=== PATIENT | female | born 1965 | race American Indian/Alaskan Native ===

== ENCOUNTER 2017-04-09 11:39 | Outpatient (CLI) | payer OTHER ==
--- NOTE | 2017-04-09 12:10 | XRay Report ---
XRAY CHEST TWO VIEWS: 04/09/17 11:39:00 CLINICAL: Cough. COMPARISON: None FINDINGS: Normal heart and pulmonary vasculature. The lungs are normally expanded and clear.Degenerative changes in thoracic spine. IMPRESSION: No acute cardiopulmonary process.
== END 2017-04-09 11:40 | disposition home or self-care (01) ==
LOC: SPVIMAG 11:39
DX: R05 Cough (principal); M47.894 Other spondylosis, thoracic region
CPT/HCPCS: 71020

== ENCOUNTER 2017-06-08 10:18 | Inpatient (IN) | payer OTHER ==
[2017-06-08 10:35] LABS: Hematocrit 36.4 % (30.3-42.9); Hemoglobin 12.3 gm/dl (10.1-14.3); Mean Corpuscular HGB Conc 34 % (30-34); Mean Corpuscular Hemoglobin 30 pg (28-32); Mean Corpuscular Volume 90 fl (79-97); Platelet Count 289 K/mm3 (140-440); Red Blood Count 4.07 M/mm3 (3.65-5.03); Red Cell Distribution Width 12.5 % (13.2-15.2); White Blood Count 6.4 K/mm3 (4.5-11.0)
--- NOTE | 2017-06-08 10:35 | Emergency Department Report ---
ED Neuro Deficit HPI - General Stated Complaint: CHEST PAIN, RT SIDE WEAKNESS Time Seen by Provider: 06/08/17 10:34 Source: patient, EMS, old records reviewed Mode of arrival: Stretcher Limitations: No Limitations - History of Present Illness Initial Comments: 52-year-old female the past medical history hypertension, asthma, diabetes presents to the hospital complaining of chest pain and right-sided weakness. Chest pain developed at 8 AM. Pain is right sided, constant, worse with palpation and movement and extends to her right trapezius muscle extending to the neck. At 9 AM patient notices right-sided arm and leg weakness and numbness with associated pain to right shoulder and arm with movement. Patient received aspirin and nitroglycerin prior to arrival with some reduction in pain. Woke up with pain and numbness in the the extremity then spread down to the chest and leg. PMD: Dr. Jones - Related Data Allergies/Adverse Reactions: Allergies Allergy/AdvReac Type Severity Reaction Status Date / Time Penicillins Allergy Rash Verified 06/08/17 10:25 ED Review of Systems ROS: Stated complaint: CHEST PAIN, RT SIDE WEAKNESS Other details as noted in HPI Comment: All other systems reviewed and negative ED Neuro Physical Exam - General Suspected Stroke: Yes - NIHSS Assessment Interval: Baseline 1a. Level of Consciousness: alert 1b. LOC Questions: answers correctly 1c. LOC Commands: performs tasks correctly 2. Best Gaze: normal 3. Visual: no visual loss 4. Facial Palsy: normal symmetrical movement 5b. Motor Arm Right: drift 5a. Motor Arm Left: no drift 6a. Motor Leg Left: no drift 6b. Motor Leg Right: no gravity effort 7. Limb Ataxia: absent 8. Sensory: mild/moderate sensory loss 9. Best Language: no aphasia 10. Dysarthria: normal 11. Extinction/Inattention: no abnormality Total Score: 5 Stroke Severity: Moderate Stroke - Other Other exam information: General: No limitations, patient is alert in no acute distress Head exam: Atraumatic, normocephalic Eyes exam: Normal appearance, pupils equal reactive to light, extraocular movements intact ENT: Moist mucous membrane, normal oropharynx Neck exam: Normal inspection, full range of motion, no meningismus, tenderness to right serious extending to right lateral Respiratory exam: Clear to auscultation bilateral, no wheezes, rales, crackles Cardiovascular: Normal rate and rhythm, reproducible right chest wall Abdomen: Soft, nondistended, and nontender, with normal bowel sounds, no rebound, or guarding Extremity: Full range of motion normal inspection no deformity Back: Normal Inspection, full range of motion, no tenderness Neurologic: Alert, oriented x3, cranial nerves intact, see NIH stroke scale Psychiatric: normal affect, normal mood Skin: Warm, dry, intact ED Course Vital Signs 06/08/17 10:53 Pulse Rate 74 Respiratory 18 Rate Blood Pressure 131/87 O2 Sat by Pulse 100 Oximetry - Consultations Consultation #1: 06/08/17 10:40 case d/w Dr Nichols neurologist. Will call back, pt in ct now 06/08/17 11:03 Upon neurologist evaluation patient no longer has weakness but does have some mild numbness to the right side. TPA not recommended at this time. Recommend admission for MRI head and C-spine and cervical radiculopathy is also in the differential - Lab Data Result diagrams: 06/08/17 10:26 06/08/17 10:26 Lab Results 06/08/17 06/08/17 06/08/17 Range/Units 10:26 10:26 10:26 WBC 6.4 (4.5-11.0) K/mm3 RBC 4.07 (3.65-5.03) M/mm3 Hgb 12.3 (10.1-14.3) gm/dl Hct 36.4 (30.3-42.9) % MCV 90 (79-97) fl MCH 30 (28-32) pg MCHC 34 (30-34) % RDW 12.5 L (13.2-15.2) % Plt Count 289 (140-440) K/mm3 PT 13.2 (12.2-14.9) Sec. INR 0.95 (0.87-1.13) APTT 29.1 (24.2-36.6) Sec. Thrombin Time (15.1-19.6) Sec. Sodium 136 L (137-145) mmol/L Potassium 4.1 (3.6-5.0) mmol/L Chloride 98.7 (98-107) mmol/L Carbon Dioxide 23 (22-30) mmol/L Anion Gap 18 mmol/L BUN 11 (7-17) mg/dL Creatinine 0.6 L (0.7-1.2) mg/dL Estimated GFR > 60 ml/min BUN/Creatinine Ratio 18 % Glucose 187 H (65-100) mg/dL Calcium 9.0 (8.4-10.2) mg/dL Troponin T < 0.010 (0.00-0.029) ng/mL 12/16/17 Range/Units 10:26 WBC (4.5-11.0) K/mm3 RBC (3.65-5.03) M/mm3 Hgb (10.1-14.3) gm/dl Hct (30.3-42.9) % MCV (79-97) fl MCH (28-32) pg MCHC (30-34) % RDW (13.2-15.2) % Plt Count (140-440) K/mm3 PT (12.2-14.9) Sec. INR (0.87-1.13) APTT (24.2-36.6) Sec. Thrombin Time 17.9 (15.1-19.6) Sec. Sodium (137-145) mmol/L Potassium (3.6-5.0) mmol/L Chloride (98-107) mmol/L Carbon Dioxide (22-30) mmol/L Anion Gap mmol/L BUN (7-17) mg/dL Creatinine (0.7-1.2) mg/dL Estimated GFR ml/min BUN/Creatinine Ratio % Glucose (65-100) mg/dL Calcium (8.4-10.2) mg/dL Troponin T (0.00-0.029) ng/mL - EKG Data -: EKG Interpreted by Ar EKG shows normal: sinus rhythm, axis (26), QRS complexes (73), ST-T waves (no stemi/t inv) Rate: normal (67) When compared to previous EKG there are: previous EKG unavailable - Radiology Data Radiology results: report reviewed ct head: naf read by radiologist - Medical Decision Making Patient's symptoms have improved after CT scan. Upon return from ct persistent numbness but no further weakness. Also symptoms associated with pain and stress. TPA is not recommended by Dr. Nichols neurologist. Patient be admitted and MRI head and C-spine - Differential Diagnosis radiculopathy, stress reaction, ischemic CVA, hemorrhagic CVA, MSK pain - Thrombolytic Inclusion/Exclusion Thrombolytic Inclusion Criteria: Negative CT Scan for ICH Thrombolytic Contraindications: Rapidily Improving s/s Critical Care Time: No Critical care attestation.: If time is entered above; I have spent that time in minutes in the direct care of this critically ill patient, excluding procedure time. ED Disposition Clinical Impression: Numbness on right side, Transient right leg weakness, Right arm weakness, HTN ( hypertension), Diabetes, Right-sided chest wall pain Disposition: OP ADMIT IP TO THIS HOSP Is pt being admited?: Yes Condition: Stable Instructions: Chest Pain (ED) Time of Disposition: 11:05 (Dr Eastman/hosp)
[2017-06-08 10:44] LABS: INR 0.95 (0.87-1.13); Partial Thromboplastin Time 29.1 Sec. (24.2-36.6)
[2017-06-08 10:47] LABS: BUN/Creatinine Ratio 18; Blood Urea Nitrogen 11 mg/dL (7-17); Carbon Dioxide 23 mmol/L (22-30); Glucose 187 mg/dL (65-100)
[2017-06-08 10:48] LABS: Anion Gap 18 mmol/L; Chloride 98.7 mmol/L (98-107); Potassium 4.1 mmol/L (3.6-5.0); Sodium 136 mmol/L (137-145)
--- NOTE | 2017-06-08 10:49 | Cat Scan Report ---
CT HEAD WITHOUT CONTRAST: 06/08/17 10:18:00 CLINICAL: 98N-STROKE ALERT. TECHNIQUE: 2.5-mm noncontrast scans. COMPARISON:None. FINDINGS: The ventricles and sulci are normal for age.No abnormal density. No mass or mass effect. No hemorrhage, edema or extra-axial collection. The sinuses are clear. Normal orbits and soft tissues. The calvarium and skull base are intact. IMPRESSION: Normal head CT. No evidence of acute infarct or hemorrhage. Verbal report was given to Dr. Jurado in the emergency department on 06/08/17 at 10:38. 98N-STROKE ALERT
[2017-06-08] MEDS ORDERED: ZOFRAN IV ONE (11:03)
[2017-06-08] MEDS ORDERED: MORPHINE IV ONE (11:04)
[2017-06-08] MEDS ORDERED: TORADOL IV ONE (11:06)
[2017-06-08 11:29] LABS: Anisocytosis 1+; Basophils % (Manual) 0 % (0.0-1.8); Blastocytes % (Manual) 0 %; Diff Status Complete; Platelet Estimate Consistent w Auto
[2017-06-08] MEDS ORDERED: BENADRYL IV ONE (12:25)
[2017-06-08] MEDS ORDERED: BENADRYL ONE (12:28)
--- NOTE | 2017-06-08 15:11 | History and Physical Report ---
History of Present Illness Date of examination: 06/08/17 Date of admission: 06/08/17 12:43 Chief complaint: CC L chest pain and Rt weakness 1 day History of present illness: History of Present Illness 52-year-old female the past medical history of hypertension, asthma and diabetes presents to the hospital complaining of chest pain and right-sided weakness. Chest pain developed at 8 AM. Pain is right sided, constant, worse with palpation and movement and extends to her right trapezius muscle extending to the neck. At 9 AM patient notices right-sided arm and leg weakness and numbness with associated pain to right shoulder and arm with movement. Patient received aspirin and nitroglycerin prior to arrival with some reduction in pain. Woke up with pain and numbness in the the extremity then spread down to the chest and leg. Past History Past Medical History: diabetes, hypertension Past Surgical History: No surgical history Social history: lives with family, full code Family history: hypertension Medications and Allergies Allergies Allergy/AdvReac Type Severity Reaction Status Date / Time Penicillins Allergy Rash Verified 06/08/17 10:25 Home Medications Medication Instructions Recorded Confirmed Last Taken Type Fluticasone [Flonase] 1 spray NS QDAY 06/08/17 06/08/17 06/07/17 06:30 History Glimepiride [Amaryl] 4 mg PO QAM 06/08/17 06/08/17 06/07/17 06:30 History Loratadine 10 mg PO Q2D 06/08/17 06/08/17 06/07/17 06:30 History Losartan/Hydrochlorothiazide 1 each PO DAILY 06/08/17 06/08/17 06/07/17 06:30 History [Losartan-Hctz 50-12.5 mg Tab] Pioglitazone HCl/Metformin HCl 1 each PO QDAY 06/08/17 06/08/17 06/07/17 06:30 History [Pioglitazone-Metformin 15-850] Review of Systems All systems: negative Cardiovascular: chest pain Neurological: transient paralysis (Rt side) Exam - Constitutional Vitals: Temp Pulse Resp BP Pulse Ox 98.0 F 65 13 127/71 96 06/08/17 12:05 06/08/17 12:00 06/08/17 12:00 06/08/17 12:00 06/08/17 12:00 General appearance: Present: no acute distress, well-nourished - EENT Eyes: Present: PERRL ENT: hearing intact, clear oral mucosa - Neck Neck: Present: supple, normal ROM - Respiratory Respiratory effort: normal Respiratory: bilateral: CTA - Cardiovascular Heart rate: 70 Rhythm: regular Heart Sounds: Present: S1 & S2. Absent: rub, click - Extremities Extremities: no ischemia, pulses intact, pulses symmetrical, No edema Peripheral Pulses: within normal limits - Abdominal General gastrointestinal: Present: soft, non-tender, non-distended, normal bowel sounds Female genitourinary: Present: normal - Integumentary Integumentary: Present: clear, warm, dry - Musculoskeletal Musculoskeletal: gait normal, strength equal bilaterally - Psychiatric Psychiatric: appropriate mood/affect, intact judgment & insight - Neurologic Neurologic: CNII-XII intact, focal deficits (Slight weakness Rt side), moves all extremities Results - Labs CBC & Chem 7: 06/08/17 10:26 06/08/17 10:26 Labs: Laboratory Last Values WBC 6.4 K/mm3 (4.5-11.0) 06/08/17 10:26 RBC 4.07 M/mm3 (3.65-5.03) 06/08/17 10:26 Hgb 12.3 gm/dl (10.1-14.3) 06/08/17 10:26 Hct 36.4 % (30.3-42.9) 06/08/17 10:26 MCV 90 fl (79-97) 06/08/17 10:26 MCH 30 pg (28-32) 06/08/17 10:26 MCHC 34 % (30-34) 06/08/17 10:26 RDW 12.5 % (13.2-15.2) L 06/08/17 10:26 Plt Count 289 K/mm3 (140-440) 06/08/17 10:26 Add Manual Diff Complete 06/08/17 10:26 Total Counted 100 06/08/17 10:26 Seg Neuts % (Manual) 46.0 % (40.0-70.0) 06/08/17 10:26 Band Neutrophils % 0 % 06/08/17 10:26 Lymphocytes % (Manual) 45.0 % (13.4-35.0) H 06/08/17 10:26 Reactive Lymphs % (Man) 0 % 06/08/17 10:26 Monocytes % (Manual) 4.0 % (0.0-7.3) 06/08/17 10:26 Eosinophils % (Manual) 4.0 % (0.0-4.3) 06/08/17 10:26 Basophils % (Manual) 0 % (0.0-1.8) 06/08/17 10:26 Metamyelocytes % 1.0 % 06/08/17 10:26 Myelocytes % 0 % 06/08/17 10:26 Promyelocytes % 0 % 06/08/17 10:26 Blast Cells % 0 % 06/08/17 10:26 Nucleated RBC % Not Reportable 06/08/17 10:26 Seg Neutrophils # Man 2.9 K/mm3 (1.8-7.7) 06/08/17 10:26 Band Neutrophils # 0.0 K/mm3 06/08/17 10:26 Lymphocytes # (Manual) 2.9 K/mm3 (1.2-5.4) 06/08/17 10:26 Abs React Lymphs (Man) 0.0 K/mm3 06/08/17 10:26 Monocytes # (Manual) 0.3 K/mm3 (0.0-0.8) 06/08/17 10:26 Eosinophils # (Manual) 0.3 K/mm3 (0.0-0.4) 06/08/17 10:26 Basophils # (Manual) 0.0 K/mm3 (0.0-0.1) 06/08/17 10:26 Metamyelocytes # 0.1 K/mm3 06/08/17 10:26 Myelocytes # 0.0 K/mm3 06/08/17 10:26 Promyelocytes # 0.0 K/mm3 06/08/17 10:26 Blast Cells # 0.0 K/mm3 06/08/17 10:26 WBC Morphology Not Reportable 06/08/17 10:26 Hypersegmented Neuts Not Reportable 06/08/17 10:26 Hyposegmented Neuts Not Reportable 06/08/17 10:26 Hypogranular Neuts Not Reportable 06/08/17 10:26 Smudge Cells Not Reportable 06/08/17 10:26 Toxic Granulation Not Reportable 06/08/17 10:26 Toxic Vacuolation Not Reportable 06/08/17 10:26 Dohle Bodies Not Reportable 06/08/17 10:26 Pelger-Huet Anomaly Not Reportable 06/08/17 10:26 [place] Rods Not Reportable 06/08/17 10:26 Platelet Estimate Consistent w auto 06/08/17 10:26 Clumped Platelets Not Reportable 06/08/17 10:26 Plt Clumps, EDTA Not Reportable 06/08/17 10:26 Large Platelets Not Reportable 06/08/17 10:26 Giant Platelets Not Reportable 06/08/17 10:26 Platelet Satelliting Not Reportable 06/08/17 10:26 Plt Morphology Comment Not Reportable 06/08/17 10:26 RBC Morphology Not Reportable 06/08/17 10:26 Dimorphic RBCs Not Reportable 06/08/17 10:26 Polychromasia Not Reportable 06/08/17 10:26 Hypochromasia Not Reportable 06/08/17 10:26 Poikilocytosis Not Reportable 06/08/17 10:26 Anisocytosis 1+ 06/08/17 10:26 Microcytosis Not Reportable 06/08/17 10:26 Macrocytosis Not Reportable 06/08/17 10:26 Spherocytes Not Reportable 06/08/17 10:26 Pappenheimer Bodies Not Reportable 06/08/17 10:26 Sickle Cells Not Reportable 06/08/17 10:26 Target Cells Not Reportable 06/08/17 10:26 Tear Drop Cells Not Reportable 06/08/17 10:26 Ovalocytes Not Reportable 06/08/17 10:26 Helmet Cells Not Reportable 06/08/17 10:26 Vance-Ronda Bodies Not Reportable 06/08/17 10:26 [place] Rings Not Reportable 06/08/17 10:26 Joseph Cells Not Reportable 06/08/17 10:26 Bite Cells Not Reportable 06/08/17 10:26 Crenated Cell Not Reportable 06/08/17 10:26 Elliptocytes Not Reportable 06/08/17 10:26 Acanthocytes (Spur) Not Reportable 06/08/17 10:26 Rouleaux Not Reportable 06/08/17 10:26 Hemoglobin C Crystals Not Reportable 06/08/17 10:26 Schistocytes Not Reportable 06/08/17 10:26 Malaria parasites Not Reportable 06/08/17 10:26 Jatin Bodies Not Reportable 06/08/17 10:26 Hem Pathologist Commnt No 06/08/17 10:26 PT 13.2 Sec. (12.2-14.9) 06/08/17 10:26 INR 0.95 (0.87-1.13) 06/08/17 10:26 APTT 29.1 Sec. (24.2-36.6) 06/08/17 10:26 Thrombin Time 17.9 Sec. (15.1-19.6) 06/08/17 10:26 Sodium 136 mmol/L (137-145) L 06/08/17 10:26 Potassium 4.1 mmol/L (3.6-5.0) 06/08/17 10:26 Chloride 98.7 mmol/L (98-107) 06/08/17 10:26 Carbon Dioxide 23 mmol/L (22-30) 06/08/17 10:26 Anion Gap 18 mmol/L 06/08/17 10:26 BUN 11 mg/dL (7-17) 06/08/17 10:26 Creatinine 0.6 mg/dL (0.7-1.2) L 06/08/17 10:26 Estimated GFR > 60 ml/min 06/08/17 10:26 BUN/Creatinine Ratio 18 % 06/08/17 10:26 Glucose 187 mg/dL (65-100) H 06/08/17 10:26 POC Glucose 179 (70-105) H 06/08/17 10:52 Calcium 9.0 mg/dL (8.4-10.2) 06/08/17 10:26 Troponin T < 0.010 ng/mL (0.00-0.029) 06/08/17 10:26 Short CBC 06/08/17 Range/Units 10:26 WBC 6.4 (4.5-11.0) K/mm3 Hgb 12.3 (10.1-14.3) gm/dl Hct 36.4 (30.3-42.9) % Plt Count 289 (140-440) K/mm3 BMP 06/08/17 10:26 Sodium 136 L Potassium 4.1 Chloride 98.7 Carbon Dioxide 23 BUN 11 Creatinine 0.6 L Glucose 187 H Calcium 9.0 Cardiac Enzymes 06/08/17 Range/Units 10:26 Troponin T < 0.010 (0.00-0.029) ng/mL Assessment and Plan Advance Directives: Yes (Full code) VTE prophylaxis?: Chemical Plan of care discussed with patient/family: Yes - Patient Problems (1) Chest pain Current Visit: Yes Status: Acute Qualifiers: Chest pain type: unspecified Qualified Code(s): R07.9 - Chest pain, unspecified Plan to address problem: Chest pain w/u (2) TIA (transient ischemic attack) Current Visit: Yes Status: Acute Qualifiers: Transient cerebral ischemia type: unspecified Qualified Code(s): G45.9 - Transient cerebral ischemic attack, unspecified Plan to address problem: W/u initiated (3) HTN (hypertension) Current Visit: Yes Status: Chronic Qualifiers: Hypertension type: essential hypertension Qualified Code(s): I10 - Essential (primary) hypertension Plan to address problem: Cont antihypertensives (4) T2DM (type 2 diabetes mellitus) Current Visit: Yes Status: Chronic Qualifiers: Diabetes mellitus complication status: without complication Diabetes mellitus care home insulin use: without spring fitter use Qualified Code(s): E11.9 - Type 2 diabetes mellitus without complications Plan to address problem: Check a1c cont oral hypoglycemics Cont coverge (5) DVT prophylaxis Current Visit: Yes Status: Acute Plan to address problem: On Lovenox
[2017-06-08] MEDS ORDERED: NACL 0.9% 500 ML 500 ML IV ONE (17:00)
[2017-06-08] MEDS: FIORICET PO PRN (20:58)
[2017-06-09] MEDS ORDERED: NON-FORMULARY (Loratadine [Loratadine] 10 MG) PO SCH (09:15)
[2017-06-09] MEDS: FIORICET PO PRN (09:21)
[2017-06-09] MEDS ORDERED: SODIUM CHLORIDE FLUSH SYRINGE 10 ML IV PRN (09:30)
[2017-06-09] MEDS ORDERED: METFORMIN HCL PO SCH (10:00)
[2017-06-09] MEDS ORDERED: NON-FORMULARY (Losartan/Hydrochlorothiazide [Losartan-Hctz 50-12.5 Mg Tab] 1 EACH) PO SCH (10:00)
[2017-06-09] MEDS ORDERED: PIOGLITAZONE HCL PO SCH (10:00)
[2017-06-09 10:22] LABS: Creatine Kinase 75 units/L (30-135); Creatine Kinase MB 1.2 ng/mL (0.0-4.0)
[2017-06-09] MEDS: FLONASE NS SCH (11:19)
[2017-06-09] MEDS: ACTOS PO SCH (11:21)
[2017-06-09] MEDS: COZAAR PO SCH (11:23)
[2017-06-09] MEDS: CLARITIN PO SCH (11:23)
[2017-06-09] MEDS: HCTZ PO SCH (11:23)
[2017-06-09] MEDS: AMARYL PO SCH (11:36)
[2017-06-09] MEDS: GLUCOPHAGE PO SCH (11:37)
[2017-06-09] MEDS: NOVOLOG SUB-Q SCH ×3 (12:00→22:36)
--- NOTE | 2017-06-09 12:08 | Consultation ---
History of Present Illness Consult date: 06/09/17 History of present illness: plan MRI and work up new onset of stroke a/w right sided numbness and pain diabetic poor cotntrol see CT report Past History Past Medical History: diabetes, hypertension Past Surgical History: No surgical history Social history: lives with family, full code Family history: hypertension Medications and Allergies Allergies Allergy/AdvReac Type Severity Reaction Status Date / Time Penicillins Allergy Rash Verified 06/08/17 10:25 Home Medications Medication Instructions Recorded Confirmed Last Taken Type Fluticasone [Flonase] 1 spray NS QDAY 06/08/17 06/08/17 06/07/17 06:30 History Glimepiride [Amaryl] 4 mg PO QAM 06/08/17 06/08/17 06/07/17 06:30 History Loratadine 10 mg PO Q2D 06/08/17 06/08/17 06/07/17 06:30 History Losartan/Hydrochlorothiazide 1 each PO DAILY 06/08/17 06/08/17 06/07/17 06:30 History [Losartan-Hctz 50-12.5 mg Tab] Pioglitazone HCl/Metformin HCl 1 each PO QDAY 06/08/17 06/08/17 06/07/17 06:30 History [Pioglitazone-Metformin 15-850] Active Meds: Active Medications Acetaminophen/Butalbital/Caffeine (Fioricet) 1 tab PO Q4H PRN PRN Reason: Headache Last Admin: 06/09/17 09:21 Dose: 1 tab Fluticasone Propionate (Flonase) 50 mcg NS QDAY PENDING SALE TO [facility] Last Admin: 06/09/17 11:19 Dose: 50 mcg Glimepiride (Amaryl) 4 mg PO QAMDIAB PENDING SALE TO [facility] Last Admin: 06/09/17 11:36 Dose: 4 mg Hydrochlorothiazide (Hctz) 12.5 mg PO QDAY PENDING SALE TO [facility] Last Admin: 06/09/17 11:23 Dose: 12.5 mg Insulin Aspart (Novolog) 0 units SUB-Q ACHS PENDING SALE TO [facility] PRN Reason: Protocol Loratadine (Claritin) 10 mg PO Q2D PENDING SALE TO [facility] Last Admin: 06/09/17 11:23 Dose: 10 mg Losartan Potassium (Cozaar) 50 mg PO QDAY PENDING SALE TO [facility] Last Admin: 06/09/17 11:23 Dose: 50 mg Metformin HCl (Glucophage) 850 mg PO QDDIAB PENDING SALE TO [facility] Last Admin: 06/09/17 11:37 Dose: Not Given Pioglitazone HCl (Actos) 15 mg PO QDDIAB PENDING SALE TO [facility] Last Admin: 06/09/17 11:21 Dose: 15 mg Sodium Chloride (Sodium Chloride Flush Syringe 10 Ml) 10 ml IV PRN PRN PRN Reason: LINE FLUSH Physical Examination - Vital Signs Vital Signs: Vital Signs BP 131/87 06/08/17 10:44 Results - Laboratory Findings CBC and BMP: 06/08/17 10:26 06/08/17 10:26 Abnormal Lab Findings: Abnormal Labs 06/08/17 06/08/17 06/08/17 10:26 10:26 10:52 RDW 12.5 L Lymphocytes % (Manual) 45.0 H Sodium 136 L Creatinine 0.6 L Glucose 187 H POC Glucose 179 H
--- NOTE | 2017-06-09 15:44 | Progress Note ---
Assessment and Plan /Chest pain Chest pain w/u ordered stress test cont aspirin, statin /TIA (transient ischemic attack) CT head unremarkable MRI/MRA/Carotid doppler ordered cont stroke protocol neurology consulted cont aspirin/statin /HTN (hypertension) Cont antihypertensives /T2DM (type 2 diabetes mellitus) Check a1c cont oral hypoglycemics Cont coverge /DVT prophylaxis On Lovenox Brief history: 52-year-old female the past medical history of hypertension, asthma and diabetes presents to the hospital complaining of chest pain and right-sided weakness. Physical exam: General appearance: Present: no acute distress, well-nourished - EENT Eyes: Present: PERRL ENT: hearing intact, clear oral mucosa - Neck Neck: Present: supple, normal ROM - Respiratory Respiratory effort: normal Respiratory: bilateral: CTA - Cardiovascular Heart rate: 70 Rhythm: regular Heart Sounds: Present: S1 & S2. Absent: rub, click - Extremities Extremities: no ischemia, pulses intact, pulses symmetrical, No edema Peripheral Pulses: within normal limits - Abdominal General gastrointestinal: Present: soft, non-tender, non-distended, normal bowel sounds Female genitourinary: Present: normal - Integumentary Integumentary: Present: clear, warm, dry - Musculoskeletal Musculoskeletal: gait normal, strength equal bilaterally - Psychiatric Psychiatric: appropriate mood/affect, intact judgment & insight - Neurologic Neurologic: CNII-XII intact, focal deficits (Slight weakness Rt side), moves all extremities Subjective Date of service: 06/09/17 Interval history: Pt seen and examined continue to c/o right hand numbness and tingling no headache did not MRI as she was claustrophobic Objective - Constitutional Vitals: Vital Signs - 12hr 06/09/17 06/09/17 06/09/17 04:00 04:15 10:00 Temperature 98.1 F Pulse Rate 62 67 Respiratory 18 Rate Blood Pressure 102/51 O2 Sat by Pulse 100 99 Oximetry 06/09/17 11:23 Temperature Pulse Rate Respiratory Rate Blood Pressure 133/62 O2 Sat by Pulse Oximetry - Labs CBC & Chem 7: 06/08/17 10:26 06/08/17 10:26
[2017-06-09 16:07] LABS: Creatine Kinase MB 1.2 ng/mL (0.0-4.0)
[2017-06-09 16:08] LABS: Creatine Kinase 80 units/L (30-135)
[2017-06-10] MEDS: NOVOLOG SUB-Q SCH ×4 (08:49→22:37)
[2017-06-10] MEDS ORDERED: PROVENTIL IH PRN (10:03)
[2017-06-10] MEDS: ACTOS PO SCH (13:59)
[2017-06-10] MEDS: HALFPRIN EC PO SCH (14:00)
[2017-06-10] MEDS: HCTZ PO SCH (14:00)
[2017-06-10] MEDS: COZAAR PO SCH (14:00)
[2017-06-10] MEDS: AMARYL PO SCH (14:02)
--- NOTE | 2017-06-10 15:25 | Vascular Lab Report ---
CAROTID DUPLEX STUDY: RIGHT PSVEDV CCA PROX:[id number] CCA DIST:[id number] ICA PROX:7624 ICA MID:7928 ICA DIST:[id number] ECA: [id number] VERT: 51 23 LEFT PSVEDV CCA PROX:8827 CCA DIST:7924 ICA PROX:3512 ICA MID:7232 ICA DIST:7536 ECA: 5913 VERT: 56 24 REASON FOR EXAM: Carotid artery stenosis and stroke. COMMENTS ON THE RIGHT: Doppler frequency analysis is consistent with 16 to 49 percent diameter reduction of the internal carotid artery. Minimal amount of plaque is seen. The common carotid artery is patent. The external carotid artery is patent. The vertebral artery has antegrade flow. COMMENTS ON THE LEFT: Doppler frequency analysis is consistent with 16 to 49 percent diameter reduction of the internal carotid artery. Minimal amount of plaque is seen. The common carotid artery is patent. The external carotid artery is patent. The vertebral artery has antegrade flow. IMPRESSION: Less than 50% diameter reduction in the internal carotid arteries bilaterally. Consider repeat carotid artery duplex in 12 months.
[2017-06-10] MEDS ORDERED: ATIVAN IV ONE (15:27)
[2017-06-10] MEDS: GLUCOPHAGE PO SCH (16:02)
[2017-06-10] MEDS: FLONASE NS SCH (16:07)
--- NOTE | 2017-06-10 19:14 | Magnetic Resonance Report ---
FINAL REPORT EXAM: MR BRAIN WO CON HISTORY: stroke TECHNIQUE: Multiplanar, multisequence MRI of the brain was performed without intravenous contrast. PRIORS: CT of the head 06/08/2017. FINDINGS: No intracranial hemorrhage, mass, mass effect, midline shift or evidence of ischemic infarct. No restricted diffusion. The intracranial flow voids are patent. The ventricles are normal in size, shape and position. The basilar cisterns are patent. The small right mastoid effusion is seen. The orbits are intact. The extracranial soft tissues are normal. IMPRESSION: 1. No intracranial abnormality. 2. Small right mastoid effusion.
--- NOTE | 2017-06-10 19:14 | Progress Note ---
Assessment and Plan - Chest pain Chest pain w/u Awaiting Lexiscan cont Oxygen,aspirin,NTG, statin - TIA (transient ischemic attack) CT head unremarkable. Carotid doppler unremarkable MRI/MRA/Carotid doppler ordered cont stroke protocol neurology input appreciated consulted cont aspirin/statin - HTN (hypertension) Cont antihypertensives - T2DM (type 2 diabetes mellitus) A1c 9.5%.m Consistent carbohydrate diet. Continue with SSI. Pt refusing insulin coverage despite high blood sugar. Pt advised to the contrary cont oral hypoglycemics - DVT prophylaxis On Lovenox Subjective Date of service: 06/10/17 Interval history: Still having chest pain and sight shortness of breath. Pt refusing her insulin injection for blood sugar control Objective - Constitutional Vitals: Vital Signs - 12hr 06/10/17 06/10/17 06/10/17 08:28 10:44 10:53 Temperature 98.5 F Pulse Rate 92 H Pulse Rate [ 80 79 Anterior Bilateral Throughout] Respiratory 18 Rate Respiratory 20 20 Rate [Anterior Bilateral Throughout] Blood Pressure 140/71 [Left] O2 Sat by Pulse 99 Oximetry 06/10/17 06/10/17 06/10/17 11:11 12:27 16:43 Temperature 97.6 F 97.9 F 97.9 F Pulse Rate 82 93 H 96 H Pulse Rate [ Anterior Bilateral Throughout] Respiratory 20 18 18 Rate Respiratory Rate [Anterior Bilateral Throughout] Blood Pressure 140/76 138/86 149/87 [Left] O2 Sat by Pulse 100 98 98 Oximetry General appearance: Present: no acute distress, well-nourished - EENT Eyes: PERRL, EOM intact - Neck Neck: supple, normal ROM - Respiratory Respiratory effort: normal Respiratory: bilateral: CTA - Cardiovascular Rhythm: regular Heart Sounds: Present: S1 & S2. Absent: gallop, rub Extremities: pulses intact, No edema, normal color, Full ROM - Gastrointestinal General gastrointestinal: Present: soft, non-tender, non-distended, normal bowel sounds - Integumentary Integumentary: clear, warm, dry - Musculoskeletal Musculoskeletal: 1, strength equal bilaterally - Neurologic Neurologic: moves all extremities - Psychiatric Psychiatric: appropriate mood/affect - Labs CBC & Chem 7: 06/08/17 10:26 06/08/17 10:26 Labs: Abnormal lab results 06/09/17 06/10/17 06/10/17 Range/Units 21:43 06:18 07:53 POC Glucose 221 H 165 H (70-105) Hemoglobin A1c 9.5 H (4-6) % 06/10/17 Range/Units 16:08 POC Glucose 210 H (70-105) Hemoglobin A1c (4-6) %
--- NOTE | 2017-06-10 19:21 | Magnetic Resonance Report ---
FINAL REPORT EXAM: MR MRA/MRV HEAD WO CON HISTORY: stroke TECHNIQUE: MRA of the brain was performed without intravenous contrast. MIPS were included. PRIORS: None. FINDINGS: Normal anatomy of the jena of [place] is noted. No intracranial aneurysm, vessel occlusion or stenosis. The vertebral, basilar and posterior cerebral arteries are patent. The posterior communicating arteries are patent. The internal carotid, middle cerebral and anterior cerebral arteries are patent. Anterior communicating artery is patent. IMPRESSION: Normal MRA of the brain.
[2017-06-10] MEDS ORDERED: LOVENOX SUB-Q SCH (22:00)
--- NOTE | 2017-06-11 00:24 | Treadmill Report ---
ORDERING PHYSICIAN: Cheryl Eastman MD INDICATION: Chest pain. FINDINGS: There is no scintigraphic evidence of myocardial ischemia. The left ventricle is normal in size and systolic function with an ejection fraction measured at 60%. There was no abnormal wall motion and wall thickening. CONCLUSION: Normal perfusion scan. JOB# [id number] AKD/[id number]
[2017-06-11 06:12] LABS: Basophils % (Auto) 0.5 % (0.0-1.8); Eosinophils % (Auto) 2.7 % (0.0-4.3); Hemoglobin 11.4 gm/dl (10.1-14.3); Mean Corpuscular HGB Conc 34 % (30-34); Mean Corpuscular Hemoglobin 31 pg (28-32); Mean Corpuscular Volume 91 fl (79-97); Platelet Count 271 K/mm3 (140-440); Red Blood Count 3.74 M/mm3 (3.65-5.03); Red Cell Distribution Width 12.7 % (13.2-15.2)
[2017-06-11 06:37] LABS: Alanine Aminotransferase 10 units/L (7-56); Albumin 3.3 g/dL (3.9-5); Albumin/Globulin Ratio 0.8 %; Alkaline Phosphatase 56 units/L (35-129); Anion Gap 18 mmol/L; BUN/Creatinine Ratio 20; Blood Urea Nitrogen 16 mg/dL (7-17); Calcium 8.9 mg/dL (8.4-10.2); Carbon Dioxide 26 mmol/L (22-30); Chloride 100.1 mmol/L (98-107); Glucose 247 mg/dL (65-100); Sodium 140 mmol/L (137-145); Total Protein 7.4 g/dL (6.3-8.2)
[2017-06-11] MEDS: NOVOLOG SUB-Q SCH ×2 (07:30→11:30)
[2017-06-11] MEDS: AMARYL PO SCH (08:45)
[2017-06-11] MEDS: GLUCOPHAGE PO SCH (08:46)
[2017-06-11] MEDS: ACTOS PO SCH (08:46)
[2017-06-11] MEDS: HCTZ PO SCH (09:55)
[2017-06-11] MEDS: CLARITIN PO SCH (09:55)
[2017-06-11] MEDS: HALFPRIN EC PO SCH (09:55)
[2017-06-11] MEDS: COZAAR PO SCH (09:58)
--- NOTE | 2017-06-11 12:22 | Discharge Summary ---
Providers - Providers Date of Admission: 06/08/17 12:43 Attending physician: AGUSTIN FOURNIER MD 06/09/17 Consult to Physician [CONS] Routine Consulting Provider: MILA PHILLIPS Reason For Exam: TIA Place consult to:: Dr. Phillips Notified:: Teresa POOLE Phone number called:: Was contact made?: Yes If yes, spoke with:: [facility] Time called:: 10:30 06/09/17 09:10 Occupational Therapy Evaluate and Treat [CONS] Routine Comment: Reason For Exam: Neuro deficits Physical Therapy Evaluation and Treat [CONS] Routine Comment: Reason For Exam: Neuro deficits Primary care physician: BUDDY DUNCAN Hospitalization Condition: Stable Hospital course: 52-year-old woman who presented to the hospital with chest pain and right-sided numbness. ACS was ruled out by negative troponins. She went on to have a stress test that was negative. An echo that showed preserved EF. She then went on to have MRI of her brain that was negative for stroke, she did not have any strokelike symptoms in the hospital and had no focal weakness on exam. She was diagnosed with costochondritis with radiating numbness. Patient refuses insulin coverage despite high glucose, known to be diabetic. A1c was 9.5. Patient was educated and counseled about treating her diabetes. She continued to refuse. She was subsequently discharged. Discharge diagnoses Chest pain due to costochondritis CVA was ruled out Hypertension Type 2 diabetes Disposition: DC-01 TO HOME OR SELFCARE Time spent for discharge: 33 minutes Core Measure Documentation - Palliative Care Palliative Care/ Comfort Measures: Not Applicable - Core Measures Any of the following diagnoses?: none Exam - Constitutional Vitals: Temp Pulse Resp BP Pulse Ox 97.6 F 76 19 105/62 99 06/11/17 03:37 06/11/17 11:40 06/11/17 03:37 06/11/17 09:58 06/11/17 08:00 General appearance: Present: no acute distress, well-nourished - EENT Eyes: Present: PERRL ENT: hearing intact, clear oral mucosa - Neck Neck: Present: supple, normal ROM - Respiratory Respiratory effort: normal Respiratory: bilateral: CTA - Cardiovascular Heart Sounds: Present: S1 & S2. Absent: rub, click - Extremities Extremities: pulses symmetrical, No edema Peripheral Pulses: within normal limits - Abdominal General gastrointestinal: Present: soft, non-tender, non-distended, normal bowel sounds Female genitourinary: Present: normal - Integumentary Integumentary: Present: clear, warm, dry - Musculoskeletal Musculoskeletal: gait normal, strength equal bilaterally - Psychiatric Psychiatric: appropriate mood/affect, intact judgment & insight - Neurologic Neurologic: CNII-XII intact, moves all extremities Plan Follow up with: BUDDY DUNCAN MD [Primary Care Provider] - 3-5 Days Prescriptions: Aspirin EC [Aspirin Enteric Coated TAB] 81 mg PO QDAY #30 tablet
[2017-06-11 13:17] VITALS: BP 128/83
[2017-06-11] MEDS: FLONASE NS SCH (13:20)
--- NOTE | 2017-06-14 14:42 | Query- Chest Pain ---
Blanca Landrum___Hector Date: 06/14/17 [employer] Salesperson/CDS:____Rohit Phone#:___[phone] Exercise your independent professional judgment when responding to query. Questions asked do not imply a particular answer is desired or expected. We greatly appreciate your clarification on this issue. Clinical Documentation States: 52 year old female was admitted on 06/08/17. The discharge summary (Dr. Young) states " - Chest pain Chest pain w/u Awaiting Lexiscan cont Oxygen,aspirin,NTG, statin " Excercise stress test states " Conclusion: normal perfusion scan " Please document the etiology of Chest Pain: [ ] Myocardial Infarction [ ] Pneumonia [ ] Mediastinitis [ x] Costochondritis [ ] Pulmonary Embolism [ ] Coronary Artery Disease [ ] GERD [ ] Other: [ ] Comment/Explanation: Present on Admission: [ ] Yes (Y) [ ] Clinically undeterminable (W) [ ] No(N) Please document response in your Progress Notes and/or Discharge Summary and indicate if the condition was present on admission. ELIZABETH
== END 2017-06-11 17:03 | disposition home or self-care (01) | DRG 206 ==
LOC: ED 10:18 → 4A 12:43
PROVIDERS: ADMIT Internal Medicine; ATTEND Internal Medicine
DX: M94.0 Chondrocostal junction syndrome [Tietze] (principal); G45.9 Transient cerebral ischemic attack, unspecified; E11.9 Type 2 diabetes mellitus without complications; I10 Essential (primary) hypertension; J45.909 Unspecified asthma, uncomplicated; Z82.49 Family history of ischemic heart disease and other diseases of the circulatory system; Z88.0 Allergy status to penicillin
CPT/HCPCS: 36415; 70450; 70544; 70551; 78452; 80048; 80053; 80061; 82550; 82553; 82962; 83036; 84484; 85007; 85025; 85610; 85670; 85730; 93005; 93010; 93017; 93306; 93880; 94640; 96374; 96375; A9270-GY; A9502; J1200; J1650; J1815; J1885; J2060; J2270; J2405; J7040